=== PATIENT | female | born 1950 | race Caucasian/White ===

== ENCOUNTER 2016-07-01 12:34 | Emergency (ER) | payer OTHER ==
--- NOTE | ~2016-07-01 | CR133 ---
[facility] A Service of [facility] & [facility] RADIOLOGY TEXT RESULTS PATIENT: GORGE COOK LOCATION: [facility] : 50 UNIT #: [id number] AGE: [address]: Dioni Martinez MD SEX: F ORDER DR: [id number] [facility] [address] [place], [place] [address] [id number] E MR#: [id number] Acc #: [id number] NAME: GORGE COOK. : 1950 SEX: F STUDY DATE/TIME: 07/01/2016 12:54 UNIT: [facility] ROOM: STUDY DESCRIPTION: CR Forearm 2 View Rt Attending Physician: Dioni Martinez M.D. Ordering Physician: Dioni Martinez M.D. Primary Care Physician: Tila Hair M.D. MEDICAL IMAGING REPORT This report is preliminary unless electronic signature is present EXAM Right forearm 07/01/2016 HISTORY Right arm pain status post fall 1 day ago. COMPARISON None. FINDINGS 2 views right forearm demonstrate no acute fracture or dislocation. Bony demineralization noted. Soft tissues are unremarkable. Degenerative changes of the first carpometacarpal joint. IMPRESSION Osteopenia. No evidence of a displaced fracture or dislocation. Degenerative changes first CMC joint. Dictated by... Rodriguez Grey M.D. THIS IS AN ELECTRONICALLY VERIFIED REPORT Rodriguez Grey M.D. at 07/02/2016 9:08 AM EMANUEL/chava TD: 07/02/2016 08:47 JOB #: [id number] MEDICAL IMAGING REPORT Page 1 of 1 COPY
[~2016-07-01 12:34] MED LIST: ACETAMINOPHEN PO; ADVAIR 250-501 EACH IH; ADVAIR 2501 DISK W/D; ADVAIR 2501 DISK W/D PO; ADVAIR 500-501 EACH IH; ADVAIR 500-501 EACH INH; ADVAIR 5001 DISK W/1 IH; ADVAIR 5001 DISK W/2 IH; ADVAIR 5001 DISK W/2 INH; ADVAIR 5001 DISK W/D PO; ADVAIR INH; ALB/IPRATROPIUM/1 E1 NEB; ALBUTEROL17 GM INH; AMIODARONE HCL100 MG PO; AMLODIPINE BESYL5 MG PO; AMOXICILLIN PO; AMOXICILLIN500 M1 PO; AMOXICILLIN875 MG PO; ASPIRIN81 M1 PO; ASPIRIN81 M2 PO; ATELVIA35 MG PO; ATENOLOL PO; ATENOLOL50 MG PO; AUGMENTIN PO; AUGMENTIN875 M1 DOB; AUGMENTIN875 M1 PO; AUGMENTIN875 MG PO; BAYER ASPIRIN325 M1 PO; BAYER CHEWABLE81 MG PO; BENTYL20 M1 PO; BENTYL20 MG PO; BENZONATATE PO; BETAPACE AF160 MG PO; BETAPACE160 MG PO; BRILINTA90 MG PO; CALCIUM + D 6001 TA1 PO; CALCIUM1 TAB.CHEW PO; CELEXA20 MG PO; CHANTIX PO; CHANTIX1 DOSE-PAC; CHANTIX1 MG; CHANTIX1 MG BC; CHANTIX1 MG PO; CIPRO PO; COMBIVENT INH14.7 GM INH; COMBIVENT MININEB INH; CORDARONE150 MG/3 M PO; CORDARONE200 M1 PO; COUMADIN2.5 MG PO; COUMADIN5 MG PO; CREON 101 CA1 PO; CREON DR 24,001 EACH PO; DAKIN'S3840 ML TOP; DICLOFENAC; DICYCLOMINE HCL20 MG PO; DILANTIN KAPSE100 MG PO; DILANTIN PO; DISCONTINUED MED; DURAGESIC TOP; EFFER-K 10 MEQ10 MEQ PO; FLAGYL PO; FLAGYL250 M1 PO; FLEXERIL PO; FOLIC ACID PO; FUROSEMIDE40 MG PO; GLUCOSAMINE500 M1 PO; HALDOL PO; HCTZ PO; HYCODAN60 ML 5MG/ PO; HYDROCHLOROTHIA25 MG PO; HYDROCODON-ACE1 EAC7 PO; IPRATR-ALBUTEROL3 ML INH; K-DUR20 ME1 PO; KEFLEX PO; KEFLEX500 MG PO; KEPPRA100 MG/ML PO; KEPPRA1000 MG PO; KEPPRA500 M2 PO; KEPPRA750 M1 PO; KEPPRA750 MG PO; LASIX; LASIX PO; LASIX20 MG PO; LEVETIRACETAM1000 MG PO; LEXAPRO PO; LIPITOR PO; LIPITOR20 MG PO; LIPITOR40 MG PO; LISINOPRIL; LISINOPRIL PO; LISINOPRIL10 MG PO; LISINOPRIL2.5 MG PO; LOPRESSOR PO; LORTAB 5/500 TA1 TA1 PO; LORTAB 5/500 TA1 TA2 PO; LORTAB 7.5-5001 TAB PO; MEDROL DOSEPAK4 MG PO; MEDROL PO; METHOTREXATE2.5 MG; METHOTREXATE2.5 MG PO; METOPROLOL-HCTZ1 TA3 PO; MIRTAZAPINE30 M1 PO; MONTELUKAST SOD10 MG PO; MYCAMINE100 MG/VIA IV; NEXIUM PO; NORCO 10/325 TA1 TAB PO; NORVASC PO; OMEPRAZOLE40 M1 PO; OMEPRAZOLE40 MG PO; OPANA ER30 M1 PO; OPANA ER30 MG PO; OPANA ER40 MG PO; OTC IRON PO; OXYCODONE HCL10 MG PO; OXYCODONE HCL5 M1 PO; OXYCONTIN10 MG PO; PANCREATIC ENZYME; PERCOCET PO; PERCOCET5/325 PO; PHENERGAN25 M1 PO; PHENERGAN25 MG PO; PHOSLO667 MG PO; POTASSIUM CHLO10 ME1 PO; POTASSIUM CHLO20 ME1 PO; PREDNISONE PO; PRILOSEC PO; PRILOSEC40 MG PO; PRIMATINE MIST; PROCARDIA XL PO; PROCARDIA10 MG PO; PROTONIX PO; PROZAC PO; PYRIDIUM PO; REMERON15 MG PO; REMERON30 MG PO; SERTRALINE HCL100 M1 PO; SERTRALINE HCL100 MG PO; SINGULAIR PO; SOLU-MEDROL1000 MG IV; SOTALOL160 MG PO; SPIRIVA; SPIRIVA18 MCG INH; SPIRIVA18 MCG PO; SYMBICORT INH; TENORMIN50 MG PO; TYLOX 5/500 CAP1 CAP PO; TYLOX1 CAP 5/50 PO; ULTRAM PO; VICODIN 5/500 T1 TAB PO; VICODIN PO; VIMPAT100 MG PO; VIMPAT150 MG PO; VIMPAT50 MG PO; VITAMIN D10000 UNIT PO; VITAMIN D50000 UNIT PO; VOLTAREN50 MG PO; WARFARIN SODIUM4 MG PO; XANAX0.5 M1 PO; XARELTO PO; XARELTO20 MG PO; ZENPEP DR 20,01 EACH PO; ZENPEP PO; ZESTORETIC 20/11 TAB PO; ZITHROMAX PO; ZOLOFT100 MG PO; ZOLOFT50 MG PO; [UNRECOGNIZED DRUG - OTHER]
== END 2016-07-01 13:50 | disposition home or self-care (01) ==
LOC: CED 12:34
DX: S50.11XA Contusion of right forearm, initial encounter (principal); I48.91 Unspecified atrial fibrillation; F17.200 Nicotine dependence, unspecified, uncomplicated; Z79.01 Long term (current) use of anticoagulants; W19.XXXA Unspecified fall, initial encounter; Y92.009 Unspecified place in unspecified non-institutional (private) residence as the place of occurrence of the external cause
CPT/HCPCS: 73090; 99283

== ENCOUNTER 2016-07-28 18:35 | Emergency (ER) | payer OTHER ==
[2016-07-29] MEDS ORDERED: BRILINTA90 MG PO (13:43)
[2016-07-29] MEDS ORDERED: LISINOPRIL2.5 MG PO (13:44)
[2016-07-29] MEDS ORDERED: SERTRALINE HCL100 M1 PO (13:44)
[2016-07-29] MEDS ORDERED: KEPPRA750 MG PO (13:44)
[2016-07-29] MEDS ORDERED: VIMPAT200 MG PO (13:44)
[2016-07-29] MEDS ORDERED: AMIODARONE HCL200 MG PO (13:45)
[2016-07-29] MEDS ORDERED: LOPRESSOR PO (13:45)
[2016-07-29] MEDS ORDERED: ATORVASTATIN CA40 MG PO (13:45)
[2016-07-29] MEDS ORDERED: PROTONIX PO (13:46)
[2016-07-29] MEDS ORDERED: LETROZOLE2.5 MG PO (13:47)
[2016-07-29] MEDS ORDERED: POTASSIUM CHLO10 ME1 PO (13:47)
[2016-07-29] MEDS ORDERED: ASPIRIN81 MG PO (13:47)
[2016-07-29] MEDS ORDERED: ALENDRONATE SOD70 M1 PO (13:48)
[2016-07-29] MEDS ORDERED: LASIX PO (13:48)
[2016-07-29] MEDS ORDERED: ADVAIR 250-501 EAC1 INH (13:49)
[2016-07-29] MEDS ORDERED: TYL325 PO (13:49)
[2016-07-29] MEDS ORDERED: ALBUTEROL2.5 MG/3 M NEB (13:50)
[2016-07-29] MEDS ORDERED: CREON DR 12,001 EAC2 PO (13:51)
[2016-07-29] MEDS ORDERED: COUMADIN7.5 MG PO (16:40)
[2016-07-29] MEDS ORDERED: COUMADIN5 MG PO (16:40)
== END 2016-07-28 18:45 | disposition left against medical advice (07) ==
LOC: CED 18:35
DX: Z53.21 Procedure and treatment not carried out due to patient leaving prior to being seen by health care provider (principal)

== ENCOUNTER 2016-07-29 09:32 | Inpatient (IN) | payer OTHER ==
--- NOTE | ~2016-07-29 | HP ---
Unit #: [id number] #: [id number] Patient: GORGE COOK [id number] [facility]. [place], [place] [address] [id number] E MR#: [id number] NAME: GORGE COOK ROOM: Age: 66 Sex: F Admission Date: 07/29/2016 : 1950 Attending Physician: Awilda Meyers M.D. Primary Care Physician: Tila Hair M.D. HISTORY AND PHYSICAL CHIEF COMPLAINT Unable to walk, weakness. HISTORY OF PRESENT ILLNESS The patient is a 66-year-old female with past medical history of PRES (posterior reversible encephalopathy syndrome), coronary artery disease, valvular heart disease, paroxysmal atrial fibrillation, chronic anticoagulation with Coumadin, hypertension, hyperlipidemia, diastolic dysfunction, COPD, chronic respiratory failure, seizure disorder, anxiety, chronic back pain, rheumatoid arthritis, who presented to the emergency department for evaluation of the above. The patient states that she has been feeling increasingly generally weak and had more falls than usual over the past week. She apparently saw Dr. Garcia yesterday for routine followup and was told to come to the emergency department for further evaluation. She apparently thought that it looked too crowded and so returned today. She states that she has had falls with hitting of the head and possibly loss of consciousness. She is unable to ambulate due to weakness. She also complains of right calf pain. She states that shortness of breath is at baseline. She has had loose stool. She has noticed this stool to have bright red blood and to be somewhat dark at times. She denies any abdominal pain. She was apparently treated with Cleocin for bronchitis by her primary care physician. The last dose was within the past couple of days. Upon arrival in the emergency department, the patient's pulse and blood pressure were 102 and 112/86 respectively. Oxygen saturation was 89% on room air. Laboratory notable for hemoglobin of 6, INR is 7.4. She was noted to be heme positive. She was given one unit of packed red blood cells as well as one unit of FFP. Additionally, she received 5 mg of vitamin K IV. She is being admitted to [facility] for evaluation and further treatment. PAST MEDICAL HISTORY 1. Admission to [facility] January 28 through the 2015, for weakness and falls. She was seen in consultation by Dr. Ratliff. There was concern that she was having partial seizures. Her Vimpat was increased. 2. Posterior reversible encephalopathy syndrome, followed by Dr. Garcia. 3. History of GI bleed. The patient has seen Dr. Bazzi in the past. 4. Coronary artery disease, status post stent placement. Followed by Dr. Mcleod. 5. Valvular heart disease, status post bioprosthetic aortic valve replacement. Unit #: [id number] #: [id number] Patient: GORGE COOK 6. Paroxysmal atrial fibrillation, on chronic anticoagulation with Coumadin. 7. Hypertension. 8. Hyperlipidemia. 9. Diastolic dysfunction. The patient had an echocardiogram June 07, 2015, that showed an ejection fraction of 55% with mild to moderate mitral regurgitation, moderate to severe tricuspid regurgitation. 10. COPD. The patient has seen Dr. Freire in the past. 11. Chronic respiratory failure, on 3 L of oxygen per nasal cannula. 12. Seizure disorder, followed by Dr. Garcia, maintained on Vimpat and Keppra. 13. Anxiety. 14. Chronic back pain secondary to degenerative disc disease. 15. Rheumatoid arthritis, not followed by a hurricane tracker. PAST SURGICAL HISTORY 1. Cardiac stent placement. 2. Bioprosthetic aortic valve replacement. 3. Hysterectomy. 4. . 5. Cataract surgery. 6. Bladder repair. 7. EGD and colonoscopy April 16, 2015, showed diffuse gastritis as well as polyps within the colon and internal hemorrhoids. Pathology report showed tubular adenoma. SOCIAL HISTORY The patient's son lives with her. She continues to smoke. She is a recovering alcoholic with her last drink being in 1994. She has a cane and a walker. FAMILY HISTORY Notable for her father having lung cancer. Mother had hypertension. ALLERGIES Propoxyphene, erythromycin, tetanus toxoid, fentanyl, ketorolac, levofloxacin. MEDICATIONS Home medications include: 1. Brilinta 90 mg twice daily. 2. Sertraline 100 mg daily. 3. Keppra 750 mg twice daily. 4. Vimpat 200 mg twice daily. 5. Lisinopril 2.5 mg daily. 6. Lopressor 50 mg twice daily. 7. Amiodarone 200 mg daily. 8. Atorvastatin 40 mg daily. 9. Protonix 40 mg daily. 10. Aspirin 81 mg daily. 11. Potassium 10 mEq daily. 12. Letrozole 2.5 mg at bedtime. 13. Lasix 20 mg daily p.r.n. 14. Alendronate 70 mg weekly. 15. Tylenol 650 mg q.6 hours p.r.n. 16. Advair 250/50 inhaled twice daily. 17. Albuterol 2.5 mg q.6 hours p.r.n. 18. Creon 12,000 units t.i.d. with meals. Unit #: [id number] #: [id number] Patient: GORGE COOK REVIEW OF SYSTEMS A complete review of systems was negative except as indicated in the HPI. Of note, Coumadin is not listed on the Med Rec. However, the patient states that she was restarted on Coumadin. She does not recall who restarted it. The dose was increased about a week ago. DIAGNOSTIC STUDIES CARDIOVASCULAR: EKG shows sinus bradycardia with a rate of 59 beats/minute. CT of the head shows nothing acute. LABORATORY: Troponin is less than 0.05. Complete blood count notable for hemoglobin and hematocrit of 6 and 20.1 respectively. MCV is 77.3, RDW is 19.4, INR is 7.4. Comprehensive metabolic panel notable for chloride of 112, bicarb is 17 with an anion gap of 6. BUN and creatinine 26 and 1.3 respectively. Calcium is 8.1. Urinalysis is essentially normal. Urine tox screen is negative. PHYSICAL EXAMINATION VITAL SIGNS: Temperature is 97.3, pulse 102, respirations 15, blood pressure 112/86, oxygen saturation initially 89% on room air, now 94%. GENERAL: The patient is a chronically ill appearing female who is awake and alert in no acute distress. HEENT: The head is atraumatic. Mucous membranes are moist. NECK: Supple. Trachea is midline. CARDIOVASCULAR: Regular rate and rhythm. LUNGS: Demonstrate decreased breath sounds bilaterally. Breathing is not labored. ABDOMEN: Soft, nontender with bowel sounds present in all four quadrants. RECTAL EXAM: Heme positive per ER documentation. EXTREMITIES: The right lower extremity is grossly larger than the left. NEURO: The patient is awake and alert. She follows commands. PSYCH: The patient is cooperative. SKIN: Demonstrates scattered ecchymoses. ASSESSMENT The patient is a 66-year-old female with: 1. Symptomatic anemia. 2. Acute blood loss anemia: The patient's hemoglobin is 6. It was 11.1 on March 21, 2016. 3. Gastrointestinal bleed: One unit of packed red blood cells have been ordered. 4. Supratherapeutic INR with an INR of 7.4. The patient received 5 mg of vitamin K IV as well as one unit of FFP in the emergency department. 5. Paroxysmal atrial fibrillation. 6. Hypertension. 7. Hyperlipidemia. 8. Valvular heart disease, status post bioprosthetic aortic valve replacement. 9. Diastolic dysfunction with ejection fraction as noted above. 10. Chronic obstructive pulmonary disease with continued tobacco abuse. 11. Chronic respiratory failure, on 3 L of oxygen per nasal cannula. 12. Coronary artery disease, status post cardiac stent placement. Unit #: [id number] #: [id number] Patient: GORGE COOK 13. History of posterior reversible encephalopathy syndrome, followed by Dr. Garcia. 14. Seizure disorder, maintained on Vimpat and Keppra. PLAN 1. Admit to intermediate level. 2. Clear liquid diet for possible endoscopy. 3. Hemoglobin and hematocrit one hour after transfusion and q.6 hours. Will plan to transfer for hemoglobin less than 8 due to history of coronary artery disease. 4. Iron studies, B12 and folate. 5. Protonix 80 mg IV x1 now followed by Protonix drip at 8 mg/hr. 6. Hold Brilinta, aspirin and Coumadin. 7. Consult Dr. Bazzi regarding GI bleed. 8. Serial cardiac enzymes. 9. Supplemental oxygen. 10. P.r.n. Duo-Nebs. 11. Fall precautions. 12. Bedrest. 13. PT/OT to evaluate and treat. 14. Followup results of right lower extremity Doppler. 15. Repeat labs in the morning including INR. 16. Additional workup and consultants based on above. Dictated by Isabel Miguel/shin TD: 07/29/2016 15:26 JOB #: [id number] HISTORY AND PHYSICAL Page 1 of 1 X Emily Kumar MD X HISTORY AND PHYSICAL
--- NOTE | ~2016-07-29 | CR72 ---
[facility] A Service of [facility] & [facility] RADIOLOGY TEXT RESULTS PATIENT: GORGE COOK LOCATION: [facility] 329-01 : [birth year] UNIT #: [id number] AGE: [address]: Emily Kumar MD SEX: F ORDER DR: [id number] [facility] [address]. [place], [place] [address] [id number] I MR#: [id number] Acc #: [id number] NAME: GORGE COOK. : 1950 SEX: F STUDY DATE/TIME: 07/29/2016 11:05 UNIT: [address] ROOM: [facility] STUDY DESCRIPTION: CR Chest Single View Portable Attending Physician: Emily Kumar M.D. Ordering Physician: Awilda Meyers M.D. Primary Care Physician: Tila Hair M.D. MEDICAL IMAGING REPORT This report is preliminary unless electronic signature is present EXAM Portable chest HISTORY Fall, chest pain for 1 day. COMPARISON 01/29/2016. FINDINGS There are granulomatous calcifications. No acute appearing infiltrate. Heart size stable. Visualized osseous structures unremarkable. IMPRESSION No acute findings. Dictated by... Terry Rolon M.D. THIS IS AN ELECTRONICALLY VERIFIED REPORT Terry Rolon M.D. at 07/30/2016 3:47 PM ARS/magaly TD: 07/29/2016 22:39 JOB #: [id number] MEDICAL IMAGING REPORT Page 1 of 1 COPY
--- NOTE | ~2016-07-29 | EKG ---
PATIENT: GORGE COOK UNIT #: [id number] Ventricular Rate: 59 BPM Atrial Rate: 59 BPM P-R Interval: 204 ms QRS Duration: 170 ms Q-T Interval: 498 ms QTC Calculation(Bezet): 493 ms P [place]: 85 degrees Calculated R [place]: -36 degrees Calculated T [place]: 62 degrees Diagnosis Line: Sinus bradycardia Diagnosis Line: Left axis deviation Diagnosis Line: Right bundle branch block Diagnosis Line: Abnormal ECG Diagnosis Line: When compared with ECG of 21-MAR-2016 11:04, Diagnosis Line: Right bundle branch block is now Present Diagnosis Line: Criteria for Septal infarct are no longer Present Diagnosis Line: Confirmed by ELIDA MULLINS MD ([id number]) on Diagnosis Line: 07/31/2016 8:35:37 AM INTERPRETING MD: HARPREET BROWN
--- NOTE | ~2016-07-29 | US85 ---
[facility] A Service of [facility] & [facility] RADIOLOGY TEXT RESULTS PATIENT: GORGE COOK LOCATION: [facility] 329- : 50 UNIT #: [id number] AGE: [address]: Emily Kumar MD SEX: F ORDER DR: [id number] [facility] [address] [place], [place] [address] [id number] I MR#: [id number] Acc #: [id number] NAME: GORGE COOK. : 1950 SEX: F STUDY DATE/TIME: 07/29/2016 14:21 UNIT: [address] ROOM: [facility] STUDY DESCRIPTION: LE Veins Unilat or Ltd Stdy Attending Physician: Emily Kumar M.D. Ordering Physician: Awilda Meyers M.D. Primary Care Physician: Tila Hair M.D. MEDICAL IMAGING REPORT This report is preliminary unless electronic signature is present EXAM Right lower extremity duplex venous ultrasound HISTORY Pain and swelling of the right lower extremity for 2 days. TECHNIQUE Grayscale, color Doppler and spectral Doppler waveform imaging of the deep venous structures of the right lower extremity was performed with compression and augmentation. Study is compared with 11/30/2015. FINDINGS Study demonstrates no evidence of DVT. IMPRESSION There is no evidence of DVT. Dictated by... Terry Rolon M.D. THIS IS AN ELECTRONICALLY VERIFIED REPORT Terry Rolon M.D. at 07/30/2016 3:50 PM ARS/magaly TD: 07/30/2016 04:50 JOB #: [id number] MEDICAL IMAGING REPORT Page 1 of 1 COPY
--- NOTE | ~2016-07-29 | CO ---
Unit #: [id number] #: [id number] Patient: GORGE MORFIN [id number] [address] [address] [id number] I MR#: [id number] NAME: GORGE MORFIN. ROOM: 329 Age: 66 Sex: F Admission Date: 07/29/2016 : 1950 Attending Physician: Emily Kumar M.D. Primary Care Physician: Tila Hair M.D. Consultation Date: 07/30/2016 CONSULTATION REPORT REASON FOR CONSULTATION GI bleeding, severe anemia. HISTORY OF PRESENT ILLNESS Ms. Morfin is a 66-year-old lady with multiple medical problems known to me from previous workup. She was admitted with complaints of generalized weakness as well as dizziness. She was found to be severely anemic and also her INR was 7.4. She says she has been showing some blood in the stool, however, it is not a large amount. There is no black stool, no nausea or vomiting, dysphagia, or hematemesis. She denies any abdominal pain. She denies any NSAID use. PAST MEDICAL HISTORY Significant for: 1. EGD and colonoscopy, March 2015, about a year and a half ago, where she was found to have gastritis and small polyps and internal hemorrhoids. 2. History of posterior reversible encephalopathy syndrome. 3. History of coronary artery disease. One month ago she had stent placement. 4. History of valvular heart disease, status post valve prosthesis, aortic valve replacement. 5. History of atrial fibrillation. 6. Hypertension. 7. Hyperlipidemia. 8. Congestive heart failure. 9. COPD. 10. Seizure disorder. HOME MEDICATIONS Include: 1. Brilinta. 2. Sertraline. 3. Keppra. 4. Vimpat. 5. Lisinopril. 6. Protonix. 7. Aspirin. 8. Creon. ALLERGIES 1. Propoxyphene. 2. Erythromycin. 3. Tetanus toxoid. Unit #: [id number] #: [id number] Patient: GORGE MORFIN 4. Fentanyl. 5. Ketoralac. 6. Levofloxacin. SOCIAL HISTORY Smoker. Denies alcohol or drug abuse. Lives with son. FAMILY HISTORY Father with lung cancer. REVIEW OF SYSTEMS A complete 10-point review of systems was done which is unremarkable other than as mentioned above. PHYSICAL EXAMINATION VITAL SIGNS: Stable. GENERAL: No acute distress. HEENT: Pupils are equal and reactive. Sclerae is anicteric. Oral mucosa is moist. NECK: No JVD. No lymphadenopathy. LUNGS: A few scattered rhonchi bilaterally. HEART: Irregular heartbeat. Mechanical valve sound. NEUROLOGIC: Grossly intact. Detailed examination deferred. SKIN: Warm and dry. DIAGNOSTIC STUDIES LABORATORY: Hemoglobin was 6, has been up to 9.3 this morning with transfusion. INR on arrival was 7.4, has been corrected with vitamin K and this morning is 1.1. IMAGING: CT head normal. ASSESSMENT AND PLAN 1. Patient with severe iron-deficiency anemia with transferrin saturation of 4, ferritin of 38 and hemoglobin of 6, appears to be subacute or chronic occult blood loss along with some active bleeding secondary to Coumadin overdose. The INR has been corrected. Will continue to watch for any further bleeding. She had upper endoscopy and colonoscopy within the last two years. I will hold off on any procedures particularly that she cannot stop any of her blood thinners given the recent stent placement and prosthetic valves. If she continues to have bleeding, endoscopy will have to be considered. Right now, I will keep her on Protonix and watch for further bleeding. 2. Severe anemia, iron deficiency. Blood transfusion has been given. Will give her iron infusion also. 3. History of chronic pancreatitis. 4. History of colon polyps. 5. Gastroesophageal reflux disease. 6. Coumadin overdose, reversed. 7. Congestive heart failure. 8. Chronic obstructive pulmonary disease. Thank you Dr. Kumar for this interesting consult, we will follow along. Unit #: [id number] #: [id number] Patient: GORGE MORFIN Dictated by... Isabel Lemons/trish TD: 08/04/2016 21:21 JOB #: [id number] CONSULTATION REPORT Page 1 of 1 X Elton Bazzi MD CONSULTATION REPORT
--- NOTE | ~2016-07-29 | DS ---
Unit #: [id number] #: [id number] Patient: GORGE COOK [id number] [address] [address] [id number] I MR#: [id number] NAME: GORGE COOK. ROOM: 329 Age: 66 Sex: F Admission Date: 07/29/2016 : 1950 Discharge Date: Attending Physician: Emily Kumar M.D. Primary Care Physician: Tila Hair M.D. DISCHARGE SUMMARY DISCHARGE DIAGNOSES 1. Gastrointestinal bleed. 2. Acute blood loss anemia with history of chronic iron-deficiency anemia. 3. Supratherapeutic INR. 4. History of atrial fibrillation. Coumadin is on hold secondary to GI bleed. 5. Hypertension. 6. Hyperlipidemia. 7. Valvular heart disease, status post bioprosthetic aortic valve replacement. 8. History of chronic diastolic heart failure. 9. Chronic obstructive pulmonary disease, stable. 10. Smoking. 11. Chronic respiratory failure on 3 liters oxygen at home. 12. Coronary artery disease, status post stent on Brilinta. 13. History of encephalopathy. 14. History of seizures on Vimpat and Keppra. 15. Mild metabolic acidosis. 16. Hypocalcemia. CONSULTANTS Dr. Bazzi. PROCEDURES None. DIAGNOSTIC STUDIES LABORATORY: Hemoglobin 9.2. Sodium 138, potassium 4.2, creatinine 0.9, liver enzymes normal, albumin 3.3. Troponins negative. IMAGING: Ultrasound of the lower extremities negative for DVT. CAT scan of the head negative for acute changes. ALLERGIES 1. Propoxyphene. 2. Erythromycin. 3. Tetanus toxoid. 4. Fentanyl. 5. Ketoralac. 6. Levofloxacin. DISCHARGE MEDICATIONS Unit #: [id number] #: [id number] Patient: GORGE COOK 1. Albuterol 2.5 mg nebulizer q.6 h. p.r.n. shortness of breath. 2. Advair 250/50 Diskus inhalation b.i.d. 3. Amiodarone 200 daily. 4. Tylenol 650 q.6 h. p.r.n. pain. 5. Vimpat 200 p.o. b.i.d. 6. Keppra 750 mg p.o. b.i.d. 7. Zoloft 100 mg daily. 8. Atorvastatin 40 daily. 9. Letrozole 2.5 mg h.s. 10. Lopressor 50 p.o. b.i.d. 11. Creon 12,000 units capsule, one capsule t.i.d. with meals. 12. Lisinopril 2.5 p.o. daily. 13. Alendronate 70 mg p.o. weekly. 14. Aspirin 81 daily. 15. Brilinta 90 mg p.o. b.i.d. 16. Protonix 40 daily. 17. Ferrous sulfate 325 p.o. b.i.d. HOSPITAL COURSE This is a 66-year-old admitted because of GI bleed. GI bleed. Patient was seen by Gastroenterology. Patient had transfusion. Currently hemoglobin is 9.2 and stable. Patient is okay to be discharged as per Dr. Bazzi. She will follow him in 4 weeks' time. Anemia secondary to acute blood loss. The patient has chronic iron-deficiency anemia also. Patient has had a blood transfusion. Hemoglobin 9.2. I am going to give her iron supplements for at home. History of atrial fibrillation with supratherapeutic INR of 1.4 on admission. The patient received vitamin K and FFP. Currently, Coumadin is on hold secondary to severe bleeding. Patient will follow her senior talent acquisition specialist for resumption of Coumadin later once she is more stable. History of coronary artery disease with stents. Continue with aspirin and Brilinta. I discussed with Dr. Bazzi. He is okay for me to continue both of them. History of valvular heart disease, status post bioprosthetic aortic valve replacement. Follow with her senior talent acquisition specialist. Seizures. Stable. DISPOSITION Discharge home. FOLLOWUP 1. Follow with family physician in one week time. 2. Follow with Dr. Bazzi in 4 weeks' time. Discharge time taken is 31 minutes. Dictated by... Tricia Dent M.D. SHERMAN/trish Unit #: [id number] #: [id number] Patient: GORGE COOK TD: 07/31/2016 15:39 JOB #: [id number] DISCHARGE SUMMARY Page 1 of 1 X Tricia Dent MD SUMMARY
--- NOTE | ~2016-07-29 | CT71 ---
[facility] A Service of [facility] RADIOLOGY TEXT RESULTS PATIENT: GORGE COOK LOCATION: [facility] 329 : 50 UNIT #: [id number] AGE: [address]: Emily Kumar MD SEX: F ORDER DR: [id number] [facility] [address] [facility]. [place], [place] [address] [id number] I MR#: [id number] Acc #: [id number] NAME: GORGE COOK. : 1950 SEX: F STUDY DATE/TIME: 07/29/2016 11:21 UNIT: [address] ROOM: [facility] STUDY DESCRIPTION: CT Head Wo Contrast Attending Physician: Emily Kumar M.D. Ordering Physician: Awilda Meyers M.D. Primary Care Physician: Tila Hair M.D. MEDICAL IMAGING REPORT This report is preliminary unless electronic signature is present EXAM CT of the head without contrast HISTORY Headache today. Multiple recent falls. Injury to right side of head. TECHNIQUE CT of the head was performed without contrast. This CT exam was performed with one or more of the following radiation dose reduction techniques: automatic control, adjustment of mA and/or kV according to patient size, and iterative reconstruction. COMPARISON 01/27/2016 FINDINGS There is no evidence of intracranial hemorrhage, acute cortical based infarction, focal mass lesion or hydrocephalus. There are stable chronic white matter changes. The included orbits and paranasal sinuses are unremarkable. The bone windows are unremarkable. IMPRESSION No acute intracranial abnormality. Dictated by... Terry Rolon M.D. THIS IS AN ELECTRONICALLY VERIFIED REPORT Terry Rolon M.D. at 07/30/2016 3:47 PM ARS/rnr [facility] RADIOLOGY TEXT RESULTS PATIENT: GORGE COOK LOCATION: [facility] 329 : 50 UNIT #: [id number] AGE: [address]: Emily Kumar MD SEX: F ORDER DR: TD: 07/29/2016 22:52 JOB #: [id number] MEDICAL IMAGING REPORT Page 1 of 1 COPY
[2016-07-29 11:23] LABS: BASOPHIL% 0.3 % (0-2.5); EOSINOPHIL% 0.2 % (0.0-7.0); HEMATOCRIT 20.1 % (35.0-45.0); LYMPHOCYTE# 0.7 X10e3 (1.0-3.5); LYMPHOCYTE% 8.8 % (17.0-45.0); MEAN CELL VOLUME 77.3 FL (83-96); MEAN CORPUSCULAR HGB CONC 29.8 g/dL (30-36); MEAN PLATELET VOLUME 7.7 FL (6.5-11.5); MONOCYTE# 0.6 X10e3 (0-1.0); MONOCYTE% 7.3 % (3.0-12.0); NEUTROPHIL# 6.3 X10e3 (1.5-7.1); NEUTROPHIL% 83.4 % (40-75); PLATELET COUNT 247 X10e3 (140-420); RED CELL DISTRIBUTION WIDTH 19.4 % (11.0-15.5); WHITE BLOOD COUNT 7.6 X10e3 (4.0-10.5)
[2016-07-29 11:25] LABS: DIFF IND YES
[2016-07-29 11:33] LABS: POC - CKMB 1.9 ng/mL (0.0-7.9); POC - TROPONIN <0.05 ng/mL (<=0.05)
[2016-07-29 11:42] LABS: NUCLEATED RED BLOOD CELL 1 /100 (0)
[2016-07-29 11:43] LABS: ANISOCYTOSIS SL; OVALOCYTES PRESENT; PLATELET ESTIMATE NORMAL (NORMAL)
[2016-07-29 11:50] LABS: ALBUMIN SERUM 3.6 g/dL (3.5-5.0); BILIRUBIN, DIRECT 0.1 mg/dL (0.0-0.2); BILIRUBIN,INDIRECT 0.5 mg/dL (0.0-0.9); BILIRUBIN,TOTAL 0.6 mg/dL (0.2-2.0); CALCIUM SERUM 8.1 mg/dL (8.4-10.2); CREATININE SERUM 1.3 mg/dL (0.6-1.4); GLOM FILT RATE Estimated 42.7 mL/min (>60); POTASSIUM 4.8 mmol/L (3.5-5.1); PROTEIN TOTAL SERUM 6.3 g/dL (6.0-8.3); PROTHROMBIN TIME (PATIENT) 83.7 SECONDS (9.6-11.5)
[2016-07-29 11:51] LABS: INR 7.4; PARTIAL THROMBOPLASTIN TIME 62.9 SECONDS (23.5-31.3)
[2016-07-29 12:41] LABS: URINE SOURCE CLEAN CATCH
[2016-07-29 12:47] LABS: URINE APPEARANCE CLEAR; URINE BILIRUBIN NEG (NEG); URINE BLOOD NEG (NEG); URINE COLOR YELLOW; URINE GLUCOSE NEG (NEG); URINE KETONE NEG (NEG); URINE LEUKOCYTE ESTERASE NEG (NEG); URINE NITRATE NEG (NEG); URINE PH 6.5 (5-8); URINE PROTEIN NEG (NEG); URINE SPECIFIC GRAVITY 1.015 (1.003-1.035); URINE UROBILINOGEN 0.2 MG/DL (NEG)
[2016-07-29 12:51] LABS: CULTURE INDICATED? NO
[2016-07-29 12:57] LABS: AMPHETAMINE NEG (NEG); BARBITURATES NEG (NEG); BENZODIAZEPINES NEG (NEG); COCAINE NEG (NEG); MARIJUANA NEG (NEG); OPIATES NEG (NEG); TRICYCLIC ANTIDEPRESSANTS NEG (NEG); U METHADONE NEG (NEG)
[2016-07-29 13:17] LABS: POC - CKMB 1.2 ng/mL (0.0-7.9); POC - TROPONIN <0.05 ng/mL (<=0.05)
[2016-07-29] MEDS ORDERED: BRILINTA90 MG PO (13:43)
[2016-07-29] MEDS ORDERED: SERTRALINE HCL100 M1 PO (13:44)
[2016-07-29] MEDS ORDERED: KEPPRA750 MG PO (13:44)
[2016-07-29] MEDS ORDERED: LISINOPRIL2.5 MG PO (13:44)
[2016-07-29] MEDS ORDERED: VIMPAT200 MG PO (13:44)
[2016-07-29] MEDS ORDERED: ATORVASTATIN CA40 MG PO (13:45)
[2016-07-29] MEDS ORDERED: LOPRESSOR PO (13:45)
[2016-07-29] MEDS ORDERED: AMIODARONE HCL200 MG PO (13:45)
[2016-07-29] MEDS ORDERED: PROTONIX PO (13:46)
[2016-07-29] MEDS ORDERED: LETROZOLE2.5 MG PO (13:47)
[2016-07-29] MEDS ORDERED: POTASSIUM CHLO10 ME1 PO (13:47)
[2016-07-29] MEDS ORDERED: ASPIRIN81 MG PO (13:47)
[2016-07-29] MEDS ORDERED: ALENDRONATE SOD70 M1 PO (13:48)
[2016-07-29] MEDS ORDERED: LASIX PO (13:48)
[2016-07-29] MEDS ORDERED: ADVAIR 250-501 EAC1 INH (13:49)
[2016-07-29] MEDS ORDERED: TYL325 PO (13:49)
[2016-07-29] MEDS ORDERED: ALBUTEROL2.5 MG/3 M NEB (13:50)
[2016-07-29] MEDS ORDERED: CREON DR 12,001 EAC2 PO (13:51)
[2016-07-29] MEDS ORDERED: COUMADIN7.5 MG PO (16:40)
[2016-07-29] MEDS ORDERED: COUMADIN5 MG PO (16:40)
[2016-07-29 16:42] LABS: FOLATE (FOLIC ACID) 19.9 ng/mL (>5.8)
[2016-07-29 17:48] LABS: HEMATOCRIT 21.8 % (35.0-45.0)
[2016-07-29 18:02] LABS: HEMOGLOBIN 6.7 gm/dL (12.0-16.0)
[2016-07-29 19:55] LABS: %MB 2.4 % (0.0-4.0); MB 2.6 ng/ml
[2016-07-30 03:55] LABS: HEMATOCRIT 30.3 % (35.0-45.0)
[2016-07-30 03:56] LABS: HEMOGLOBIN 9.1 gm/dL (12.0-16.0)
[2016-07-30 07:57] LABS: BASOPHIL% 0.7 % (0-2.5); EOSINOPHIL% 0.8 % (0.0-7.0); HEMATOCRIT 27.5 % (35.0-45.0); HEMOGLOBIN 8.6 gm/dL (12.0-16.0); LYMPHOCYTE# 0.7 X10e3 (1.0-3.5); LYMPHOCYTE% 11.5 % (17.0-45.0); MEAN CORPUSCULAR HEMOGLOBIN 25.5 PG (28-34); MEAN CORPUSCULAR HGB CONC 31.2 g/dL (30-36); MEAN PLATELET VOLUME 8.9 FL (6.5-11.5); MONOCYTE# 0.4 X10e3 (0-1.0); NEUTROPHIL# 4.6 X10e3 (1.5-7.1); PLATELET COUNT 136 X10e3 (140-420); RED BLOOD COUNT 3.37 X10e (3.90-5.30); RED CELL DISTRIBUTION WIDTH 18.3 % (11.0-15.5); WHITE BLOOD COUNT 5.7 X10e3 (4.0-10.5)
[2016-07-30 07:59] LABS: MEAN CELL VOLUME 81.6 FL (83-96)
[2016-07-30 08:03] LABS: DIFF IND NO
[2016-07-30 08:43] LABS: ALBUMIN SERUM 3.4 g/dL (3.5-5.0); BILIRUBIN,TOTAL 1.1 mg/dL (0.2-2.0); CALCIUM SERUM 7.9 mg/dL (8.4-10.2); GLOM FILT RATE Estimated 58.7 mL/min (>60); POTASSIUM 4.6 mmol/L (3.5-5.1); PROTEIN TOTAL SERUM 5.6 g/dL (6.0-8.3)
[2016-07-30 09:18] LABS: %MB 2.2 % (0.0-4.0); MB 2.8 ng/ml
[2016-07-30 10:19] LABS: HEMOGLOBIN 9.3 gm/dL (12.0-16.0)
[2016-07-30 10:37] LABS: INR 1.1; PARTIAL THROMBOPLASTIN TIME 28.8 SECONDS (23.5-31.3); PROTHROMBIN TIME (PATIENT) 12.2 SECONDS (9.6-11.5)
[2016-07-30 14:52] LABS: HEMATOCRIT 33.7 % (35.0-45.0); HEMOGLOBIN 10.5 gm/dL (12.0-16.0)
[2016-07-30 22:29] LABS: HEMATOCRIT 28.4 % (35.0-45.0); HEMOGLOBIN 8.9 gm/dL (12.0-16.0)
[2016-07-31 03:40] LABS: HEMATOCRIT 28.5 % (35.0-45.0); HEMOGLOBIN 8.8 gm/dL (12.0-16.0); MEAN CELL VOLUME 80.3 FL (83-96); MEAN CORPUSCULAR HEMOGLOBIN 24.9 PG (28-34); MEAN CORPUSCULAR HGB CONC 30.9 g/dL (30-36); MEAN PLATELET VOLUME 8.7 FL (6.5-11.5); RED BLOOD COUNT 3.55 X10e (3.90-5.30); RED CELL DISTRIBUTION WIDTH 18.6 % (11.0-15.5); WHITE BLOOD COUNT 4.5 X10e3 (4.0-10.5)
[2016-07-31 04:07] LABS: ALBUMIN SERUM 3.3 g/dL (3.5-5.0); BILIRUBIN,TOTAL 0.9 mg/dL (0.2-2.0); BUN/CREATININE RATIO 14.44; CALCIUM SERUM 7.9 mg/dL (8.4-10.2); CREATININE SERUM 0.9 mg/dL (0.6-1.4); GLOM FILT RATE Estimated 66.7 mL/min (>60); POTASSIUM 4.2 mmol/L (3.5-5.1); PROTEIN TOTAL SERUM 5.6 g/dL (6.0-8.3)
[2016-07-31 10:15] LABS: HEMATOCRIT 30.2 % (35.0-45.0); HEMOGLOBIN 9.2 gm/dL (12.0-16.0)
[2016-07-31] MEDS ORDERED: FERRO-TIME325 MG PO (15:19)
== END 2016-07-31 17:13 | disposition home or self-care (01) | DRG 378 ==
LOC: CED 09:32 → CEDOF 14:45 → CED 14:57 → CEDOF 14:57 → C3A PCU 19:49
PROVIDERS: Family Medicine; Internal Medicine; Student in an Organized Health Care Education/Training Program
PROC: 30233N1 Transfusion of Nonautologous Red Blood Cells into Peripheral Vein, Percutaneous Approach (ICD-10-PCS; principal; 2016-07-29)
PROC: 30233L1 Transfusion of Nonautologous Fresh Plasma into Peripheral Vein, Percutaneous Approach (ICD-10-PCS; 2016-07-29)
PROC: 30233K1 Transfusion of Nonautologous Frozen Plasma into Peripheral Vein, Percutaneous Approach (ICD-10-PCS; 2016-07-29)
DX: K92.2 Gastrointestinal hemorrhage, unspecified (principal); J96.10 Chronic respiratory failure, unspecified whether with hypoxia or hypercapnia; E87.2 Acidosis; I48.0 Paroxysmal atrial fibrillation; Z99.81 Dependence on supplemental oxygen; I11.0 Hypertensive heart disease with heart failure; I50.32 Chronic diastolic (congestive) heart failure; J44.9 Chronic obstructive pulmonary disease, unspecified; G40.909 Epilepsy, unspecified, not intractable, without status epilepticus; E83.51 Hypocalcemia; D62 Acute posthemorrhagic anemia; K92.1 Melena; I25.10 Atherosclerotic heart disease of native coronary artery without angina pectoris; Z95.5 Presence of coronary angioplasty implant and graft; Z95.2 Presence of prosthetic heart valve; Z79.01 Long term (current) use of anticoagulants; E78.5 Hyperlipidemia, unspecified; F41.9 Anxiety disorder, unspecified; M54.9 Dorsalgia, unspecified; G89.29 Other chronic pain; M06.9 Rheumatoid arthritis, unspecified; Z79.82 Long term (current) use of aspirin
CPT/HCPCS: 36415; 70450; 71010; 80048; 80053; 80076; 80307; 81003; 82550; 82553; 82607; 82728; 82746; 82947; 83540; 83550; 84484; 85014; 85018; 85025; 85027; 85610; 85730; 86850; 86900; 86901; 86923; 93005; 93971; 94640; 94760; 97116; 97163; 97166; 99291; C9113; G8978-GP; G8979-GP; G8984-GO; G8985-GO; J2916; J3430; P9016; P9059

== ENCOUNTER 2016-08-04 11:48 | Emergency (ER) | payer OTHER ==
--- NOTE | ~2016-08-04 | CT71 ---
[facility] A Service of [facility] & [facility] RADIOLOGY TEXT RESULTS PATIENT: GORGE COOK LOCATION: [facility] : 50 UNIT #: [id number] AGE: [address]: Fabian Bruce MD SEX: F ORDER DR: [id number] [facility] [address] [place], [place] [address] [id number] E MR#: [id number] Acc #: [id number] NAME: GORGE COOK. : 1950 SEX: F STUDY DATE/TIME: 08/04/2016 13:36 UNIT: [facility] ROOM: STUDY DESCRIPTION: CT Head Wo Contrast Attending Physician: Omkar Bruce M.D. Ordering Physician: [facility] Primary Care Physician: Tila Hair M.D. MEDICAL IMAGING REPORT This report is preliminary unless electronic signature is present EXAM CT head 08/04/2016 HISTORY Headache. Weakness, fall, hit head, hit right side of head on concrete. Complains of headache all over, dizziness times today. Prior history of breast cancer. TECHNIQUE CT head performed skull base through vertex without intravenous contrast. This CT exam was performed with one or more of the following radiation dose reduction techniques: automatic exposure control, adjustment of mA and/or kV according to patient size, and iterative reconstruction. COMPARISON STUDIES Comparison 07/29/2016 FINDINGS The study is degraded by streak/motion artifact despite repetition of images. Brainstem unremarkable. Cerebellum and cerebral hemispheres show overall preservation of taylor matter-white matter differentiation. No evidence of acute cortical hemorrhage. Subtle linear focus of hyperdensity measuring 3-4 mm in length deep in a right posterior frontal lobe gyrus. Not present on a comparison study dated 01/27/2016 and not evident on study dated 07/29/2016. Where best visualized, this finding is not an area of motion artifact. It is concerning for a small focus of subarachnoid or gyriform petechial hemorrhage. Short-interval followup recommended. No mass effect or surrounding edema. No other areas suggestive of acute hemorrhage. The midline structures are nondisplaced. The basal ganglia are intact. There are mild periventricular probable sequelae of chronic microvascular ischemia. Ventricles, cisterns and sulci show mild generalized enlargement consistent with mild generalized STS. [facility] A Service of [facility] & [facility] RADIOLOGY TEXT RESULTS PATIENT: GORGE COOK LOCATION: [facility] : 50 UNIT #: [id number] AGE: [address]: Fabian Bruce MD SEX: F ORDER DR: atrophy. No intra or extraaxial mass effect or abnormal intracranial fluid collection. Intraorbital soft tissues are unremarkable. There are cavernous carotid arterial calcifications. The bony structures show no acute abnormality. The visualized paranasal sinuses and mastoid air cells are clear. No clearly acute extracranial soft tissue abnormality. IMPRESSION 1. Findings discussed Dr. Bruce at time of this dictation. There is a small 3-4 mm linear hyperdense focus deep in a sulcus of the posterior right frontal lobe (series 6 image 29/30). This is new compared to studies from January 2016 and July 2016 and given patient's stated mechanism of injury is concerning for a tiny focus of subarachnoid hemorrhage or petechial gyriform hemorrhage. Short-interval followup recommended. No mass effect. No surrounding edema. No other areas of intracranial hemorrhage suggested. 2. Periventricular and deep white matter tract probable sequelae of chronic microvascular ischemia. 3. Mild atrophy. 4. Vascular calcifications. 5. No fracture. Dictated by... Alfred Giron M.D. THIS IS AN ELECTRONICALLY VERIFIED REPORT Alfred Giron M.D. at 08/04/2016 7:48 PM Jose TD: 08/04/2016 16:43 JOB #: [id number] MEDICAL IMAGING REPORT Page 1 of 1 COPY
--- NOTE | ~2016-08-04 | CR58 ---
[facility] A Service of [facility] & [facility] RADIOLOGY TEXT RESULTS PATIENT: GORGE COOK LOCATION: [facility] : 50 UNIT #: [id number] AGE: [address]: Fabian Bruce MD SEX: F ORDER DR: [id number] [facility] [address] [place], [place] [address] [id number] E MR#: [id number] Acc #: [id number] NAME: GORGE COOK. : 1950 SEX: F STUDY DATE/TIME: 08/04/2016 17:04 UNIT: [facility] ROOM: STUDY DESCRIPTION: CR Cervical Spine 2 or 3 Views Attending Physician: Omkar Bruce M.D. Ordering Physician: Mundo Malik M.D. Primary Care Physician: Tila Hair M.D. MEDICAL IMAGING REPORT This report is preliminary unless electronic signature is present EXAM Cervical series 08/04/2016 INDICATION 66-year-old female with pain in the neck after a fall yesterday. TECHNIQUE 4 views of the cervical spine. Correlation is made with CT 12/24/2015 FINDINGS Dens and lateral masses are intact. There is advanced degenerative disc disease throughout the cervical spine. There is spurring most conspicuous at C3 and C4 there is reversal of the expected cervical curve. There is mild retrograde listhesis of C5 on C6 grade 1 in degree. Cervicothoracic junction not adequately visualized for radiographic clearance. C2-C7 appear intact. IMPRESSION 1. Cervicothoracic junction not identified for radiographic clearance. There is no acute fracture from C2-C7. Degenerative changes and retrograde listhesis of C5 on C6 as described. 2. Incidental atherosclerotic carotid calcifications present. A risk factor for stroke. Dictated by... Anderson Winslow M.D. THIS IS AN ELECTRONICALLY VERIFIED REPORT Anderson Winslow M.D. at 08/04/2016 10:29 PM MARK/magaly TD: 08/04/2016 22:09 JOB #: [id number] [facility] A Service of [facility] & [facility] RADIOLOGY TEXT RESULTS PATIENT: GORGE COOK LOCATION: [facility] #: [id number] : [birth year] UNIT #: [id number] AGE: [address]: Fabian Bruce MD SEX: F ORDER DR: MEDICAL IMAGING REPORT Page 1 of 1 COPY
--- NOTE | ~2016-08-04 | EKG ---
PATIENT: GORGE COOK UNIT #: [id number] Ventricular Rate: 61 BPM Atrial Rate: 61 BPM P-R Interval: 192 ms QRS Duration: 148 ms Q-T Interval: 454 ms QTC Calculation(Bezet): 457 ms P [employer]: 90 degrees Calculated R [employer]: -64 degrees Calculated T [employer]: 51 degrees Diagnosis Line: Normal sinus rhythm Diagnosis Line: Left axis deviation Diagnosis Line: Right bundle branch block Diagnosis Line: Abnormal ECG Diagnosis Line: When compared with ECG of 29-JUL-2016 11:35, Diagnosis Line: No significant change was found Diagnosis Line: Confirmed by HARMAN RYDER MD ([id number]) on Diagnosis Line: 08/05/2016 4:27:09 PM INTERPRETING MD: BRITNI BROWN
--- NOTE | ~2016-08-04 | CR151 ---
[facility] A Service of [facility] & [facility] RADIOLOGY TEXT RESULTS PATIENT: GORGE COOK LOCATION: [facility] : 50 UNIT #: [id number] AGE: [address]: Fabian Bruce MD SEX: F ORDER DR: [id number] [facility] [address] [place], [place] [address] [id number] E MR#: [id number] Acc #: [id number] NAME: GORGE COOK. : 1950 SEX: F STUDY DATE/TIME: 08/04/2016 12:51 UNIT: [facility] ROOM: STUDY DESCRIPTION: CR Hip Min 2 Views Rt Attending Physician: Omkar Bruce M.D. Ordering Physician: Ed Juventino Malik M.D. Primary Care Physician: Tila Hair M.D. MEDICAL IMAGING REPORT This report is preliminary unless electronic signature is present EXAM Right hip series 08/04/2016. HISTORY Trauma. Fell. Right hip pain. Weakness. TECHNIQUE AP radiograph of the pelvis is presented with frog-leg view right hip. FINDINGS Moderate to marked degenerative change in partially visualized lower lumbar spine. Bony ring of pelvis is intact. Sacroiliac joints, sacral arcuate lines intact. Mild narrowing bilateral hip joints. The visualized bilateral proximal femurs are intact. Periarticular soft tissues unremarkable. Visualized bowel gas pattern normal. Calcifications superimposed over the pelvis bilaterally most likely phleboliths. Dictated by... Alfred Giron M.D. THIS IS AN ELECTRONICALLY VERIFIED REPORT Alfred Giron M.D. at 08/04/2016 7:48 PM FRANCES/jake TD: 08/04/2016 16:20 JOB #: [id number] MEDICAL IMAGING REPORT Page 1 of 1 COPY
[~2016-08-04 11:48] MED LIST changes: +ADVAIR 250-501 EAC1 INH; +ALBUTEROL2.5 MG/3 M NEB; +ALENDRONATE SOD70 M1 PO; +AMIODARONE HCL200 MG PO; +ASPIRIN81 MG PO; +ATORVASTATIN CA40 MG PO; +COUMADIN7.5 MG PO; +CREON DR 12,001 EAC2 PO; +FERRO-TIME325 MG PO; +LETROZOLE2.5 MG PO; +TYL325 PO; +VIMPAT200 MG PO
[2016-08-04 14:26] LABS: URINE SOURCE CLEAN CATCH
[2016-08-04 14:41] LABS: URINE APPEARANCE CLOUDY; URINE BILIRUBIN NEG (NEG); URINE BLOOD TRACE (NEG); URINE COLOR YELLOW; URINE GLUCOSE NEG (NEG); URINE KETONE NEG (NEG); URINE LEUKOCYTE ESTERASE 2+ (NEG); URINE NITRATE NEG (NEG); URINE PROTEIN TRACE (NEG); URINE SPECIFIC GRAVITY 1.011 (1.003-1.035); URINE UROBILINOGEN 0.2 MG/DL (NEG)
[2016-08-04 14:41] LABS: BASOPHIL# 0.1 X10e3 (0-0.3); BASOPHIL% 0.7 % (0-2.5); EOSINOPHIL# 0.1 X10e3 (0-0.7); EOSINOPHIL% 0.6 % (0.0-7.0); HEMATOCRIT 34.6 % (35.0-45.0); HEMOGLOBIN 10.4 gm/dL (12.0-16.0); LYMPHOCYTE% 8.7 % (17.0-45.0); MEAN CELL VOLUME 83.9 FL (83-96); MEAN CORPUSCULAR HEMOGLOBIN 25.1 PG (28-34); MEAN PLATELET VOLUME 8.4 FL (6.5-11.5); MONOCYTE# 0.7 X10e3 (0-1.0); MONOCYTE% 6.1 % (3.0-12.0); NEUTROPHIL# 9.3 X10e3 (1.5-7.1); NEUTROPHIL% 83.9 % (40-75); PLATELET COUNT 205 X10e3 (140-420); RED BLOOD COUNT 4.12 X10e (3.90-5.30); WHITE BLOOD COUNT 11.1 X10e3 (4.0-10.5)
[2016-08-04 14:42] LABS: DIFF IND NO
[2016-08-04 14:44] LABS: CULTURE INDICATED? YES; URBCS1 AUWI 0-2 /[HPF] (0-2); URINE BACTERIA AUWI 4+ (NEGATIVE); URINE SQUAMOUS EPITHELIAL CELL OCC /[HPF]; UWBCS1 AUWI 25-50 (0-5)
[2016-08-04 14:53] LABS: PARTIAL THROMBOPLASTIN TIME 25.9 SECONDS (23.5-31.3); PROTHROMBIN TIME (PATIENT) 10.4 SECONDS (9.6-11.5)
[2016-08-04 15:05] LABS: BILIRUBIN, DIRECT 0.1 mg/dL (0.0-0.2); BILIRUBIN,INDIRECT 0.5 mg/dL (0.0-0.9); BILIRUBIN,TOTAL 0.6 mg/dL (0.2-2.0); BUN/CREATININE RATIO 15.55; CALCIUM SERUM 8.8 mg/dL (8.4-10.2); CREATININE SERUM 0.9 mg/dL (0.6-1.4); GLOM FILT RATE Estimated 66.7 mL/min (>60); PROTEIN TOTAL SERUM 7.3 g/dL (6.0-8.3)
[2016-08-04 15:36] LABS: %MB 2.2 % (0.0-4.0)
== END 2016-08-04 18:50 | disposition other institution (70) ==
LOC: CED 11:48
PROVIDERS: Emergency Medicine
DX: I62.9 Nontraumatic intracranial hemorrhage, unspecified (principal); J44.9 Chronic obstructive pulmonary disease, unspecified; F17.210 Nicotine dependence, cigarettes, uncomplicated; W18.30XA Fall on same level, unspecified, initial encounter
CPT/HCPCS: 70450; 72040; 73502; 80048; 80076; 81003; 82550; 82553; 82947; 84484; 85025; 85610; 85730; 87086; 87088; 87186; 93005; 99285

== ENCOUNTER → 2016-08-23 | Outpatient (CLI) | payer OTHER ==
--- NOTE | ~2016-08-23 | US24 ---
[facility] A Service of [facility] & [facility] RADIOLOGY TEXT RESULTS PATIENT: GORGE COOK LOCATION: [facility] : 50 UNIT #: [id number] AGE: [address]: TILA DELEON SEX: F ORDER DR: [id number] [facility] [address] [place], [place] [address] [id number] O MR#: [id number] Acc #: [id number] NAME: GORGE COOK. : 1950 SEX: F STUDY DATE/TIME: 08/23/2016 10:40 UNIT: [facility] ROOM: STUDY DESCRIPTION: US Breast Unilateral Attending Physician: Tila Deleon M.D. Referring Physician: Tila Deleon M.D. Primary Care Physician: Tila Deleon M.D. MEDICAL IMAGING REPORT This report is preliminary unless electronic signature is present EXAM Targeted ultrasound of the right breast 08/23/2016 FINDINGS Result text under the Diagnostic mammogram of the right breast same day examination. Please see that examination for full report. BIRADS: 3 Probably benign finding; short interval followup suggested. Dictated by... Anderson Winslow M.D. THIS IS AN ELECTRONICALLY VERIFIED REPORT Anderson Winslow M.D. at 08/23/2016 1:15 PM Hien TD: 08/23/2016 12:41 JOB #: [id number] MEDICAL IMAGING REPORT Page 1 of 1 COPY
--- NOTE | ~2016-08-23 | MY8 ---
[facility] A Service of [facility] & [facility] RADIOLOGY TEXT RESULTS PATIENT: GORGE COOK LOCATION: [facility] : 50 UNIT #: [id number] AGE: [address]: TILA DELEON SEX: F ORDER DR: [id number] [facility] [address] [place], [place] [address] [id number] O MR#: [id number] Acc #: [id number] NAME: GORGE COOK. : 1950 SEX: F STUDY DATE/TIME: 08/23/2016 10:07 UNIT: [facility] ROOM: STUDY DESCRIPTION: MY Mammogram Dx Dig Rt Attending Physician: Tila Deleon M.D. Referring Physician: Tila Deleon M.D. Primary Care Physician: Tila Deleon M.D. MEDICAL IMAGING REPORT This report is preliminary unless electronic signature is present REVISED REPORT SEE ADDENDUM EXAM Unilateral right digital diagnostic mammogram and targeted right breast ultrasound, 08/23/2016. INDICATION 66-year-old female with a history of breast cancer on the right status post lumpectomy in December of 2015. The patient reports approximately 1 month ago she fell on her right breast and experienced extensive bruising all over the right breast. She also suffered a subdural hematoma in connection with a fall on concrete. She now complains of a palpable nodule in the right breast. She reports it has been there for approximately 1 month. TECHNIQUE CC, MLO, and true lateral views of the right breast were obtained and reviewed with an FDA-approved CAD device. Following the mammographic evaluation of the right breast, targeted ultrasound was also performed. COMPARISON Mammogram studies 12/10/15 and 12/31/2015, FINDINGS MAMMOGRAPHIC FINDINGS: A marker overlies the area of palpable concern. There is architectural distortion in the right breast related to THE lumpectomy procedure in the interval. Probable hemostases clips are present in the right breast at the lumpectomy site. There is mild skin thickening which may relate to postoperative sequela or radiation therapy as the patient reports a history of chemotherapy and/or radiation therapy. [facility] A Service of [facility] & [facility] RADIOLOGY TEXT RESULTS PATIENT: GORGE COOK LOCATION: [facility] : 50 UNIT #: [id number] AGE: [address]: TILA DELEON SEX: F ORDER DR: Deep to the scar marker and the area of palpable concern, there is a partially obscured but oval and otherwise well marginated mass measuring up to about 3 cm. Visible margins are smooth. This corresponds to the site of the prior lumpectomy and the site of palpable concern by the patient. No suspicious calcifications. Targeted ultrasound was thereafter performed. ULTRASOUND FINDINGS Right breast: The patient is initially scanned independently by the technologist and then rescanned in my presence. Limited physical exam (with patient consent) was performed. Physical exam demonstrates a palpable nodule in the upper outer hemisphere right breast corresponding to the mammographic abnormality. On ultrasound, there is a mixed echogenicity mass measuring 2.5 x 2.8 x 1.8 cm. It demonstrates increased through transmission and no internal color-flow. Portions of the mass are purely cystic and other portions appears solid or complicated in nature with overall imaging features most characteristic of a hematoma with blood products in different stages of evolution. Given the provided history of the recent fall and the history of lumpectomy, it is unclear if this represents a hematoma related to the lumpectomy or the recent traumatic injury. Regardless, this represents a probably benign finding based on imaging and history. The patient was presented the option of 3-6 months followup or ultrasound-guided biopsy for more definitive assessment in lieu of imaging followup. The patient has decided upon imaging followup rather than biopsy at this time which appears reasonable based upon imaging features and history. The patient was counseled that if this nodule enlarged or appeared more suspicious on followup imaging that at that point it would need to be more definitively characterized with biopsy. The patient voiced understanding and agreement. She was also encouraged to return prior to scheduled followup if symptoms worsened and she voiced understanding and agreement. IMPRESSION 1. The diagnostic mammogram and targeted right breast ultrasound demonstrate a probably benign postoperative or posttraumatic hematoma/seroma in the operative bed on the right measuring up to about 3 cm mammographically. Based on imaging features and history and location, this is favored to be a probably benign finding. The patient has decided to pursue short-term followup rather than biopsy at this time which appears reasonable under the circumstances, as described above. If this appears more suspicious or enlarges on followup imaging with mammography and ultrasound in 3-6 months, then ultrasound-guided core biopsy would be recommended at that point for further assessment. Please see further details above. 2. Findings and recommendations have been discussed in detail with the patient. Patients over the age of 40 are entered into a reminder system with target due date for the next mammogram. A result letter will also be sent to the [facility] A Service of [facility] RADIOLOGY TEXT RESULTS PATIENT: GORGE COOK LOCATION: [facility] : 50 UNIT #: [id number] AGE: [address]: TILA DELEON SEX: F ORDER DR: patient. BIRADS: 3 Probably benign finding; short interval follow-up suggested. Dictated by... Anderson Winslow M.D. THIS IS AN ELECTRONICALLY VERIFIED REPORT Anderson Winslow M.D. at 08/23/2016 1:15 PM Danny TD: 08/23/2016 12:29 JOB #: [id number] ADDENDUM The patient should return for a repeat mammogram and ultrasound in 3-6 months to confirm expected stability of the probably benign postoperative or posttraumatic seroma/hematoma in the right breast. STAT * RESULT Dictated by... Anderson Winslow M.D. THIS IS AN ELECTRONICALLY VERIFIED REPORT Anderson Winslow M.D. at 08/24/2016 7:41 AM Marcelo TD: 08/23/2016 11:36 JOB #: [id number] CC: Sovera/invision Please Delete MEDICAL IMAGING REPORT Page 1 of 1 COPY
== END | disposition home or self-care (01) ==
LOC: CMAM 09:30
DX: N63 Unspecified lump in breast (principal)
CPT/HCPCS: 76641; G0202; G0206

== ENCOUNTER → 2016-08-28 | Outpatient (CLI) | payer OTHER ==
--- NOTE | ~2016-08-28 | MR17 ---
[facility] A Service of [facility] & [facility] RADIOLOGY TEXT RESULTS PATIENT: GORGE COOK LOCATION: [facility] : 50 UNIT #: [id number] AGE: [address]: TILA DELEON SEX: F ORDER DR: [id number] [facility] [address] [place], [place] [address] [id number] O MR#: [id number] Acc #: [id number] NAME: GORGE COOK. : 1950 SEX: F STUDY DATE/TIME: 08/28/2016 13:22 UNIT: [facility] ROOM: STUDY DESCRIPTION: MR Brain WWo Contrast Attending Physician: Tila Deleon M.D. Referring Physician: Tila Deleon M.D. Primary Care Physician: Tila Deleon M.D. MRI CENTER REPORT This report is preliminary unless electronic signature is present. EXAM Brain MRI with without contrast. HISTORY Patient fell 3 weeks ago. Concern for a subdural hematoma. Patient diagnosed with dementia approximately 6 months ago. TECHNIQUE Multiplanar imaging brain was performed with and without contrast. 5 mL of MultiHance was used because of diminished GFR. COMPARISON The study is compared to a previous MRI from 03/22/2016 FINDINGS On diffusion weighted imaging there is no evidence of abnormal restricted diffusion to suggest a recent infarct. The routine brain images show moderate atrophy and moderate chronic ischemic changes in the periventricular deep white matter bilaterally. This has not progressed significantly since the previous exam. There is no evidence of a mass lesion or hemorrhage. No mass lesions are seen. On gradient echo imaging, there is a subacute to chronic hemorrhage seen in the subarachnoid space over the right cerebral convexity in what is probably the central sulcus. This is new since the previous MRI of 03/22/2016. There is no appreciable mass effect. No acute hemorrhages are seen. Postcontrast imaging shows no abnormal enhancement. No subdural collections of blood are noted either acutely or chronically. Also noted are low-lying cerebellar tonsils, unchanged from previous examinations, consistent with mild Chiari-I malformation. Impression 1. Subacute to chronic subarachnoid hemorrhage right cerebral convexity, probably in the central sulcus. It is new since the previous MRI [facility] A Service of [facility] & [facility] RADIOLOGY TEXT RESULTS PATIENT: GORGE COOK [facility] UNIT #: [id number] AGE: [address]: TILA DELEON SEX: F ORDER DR: 03/22/2016. It is not visible even in retrospect on the recent head CT from 07/29/2016. There is no appreciable mass effect and there is no evidence of subdural blood. 2. Atrophy with chronic ischemic changes stable since the previous exam. 3. Mild Chiari-I malformation. Dictated by... Dioni Holloway M.D. THIS IS AN ELECTRONICALLY VERIFIED REPORT Dioni Holloway M.D. at 08/29/2016 4:10 PM RLF/radha TD: 08/29/2016 11:16 JOB #: [id number] MRI CENTER REPORT Page 1 of 1 COPY
[2016-08-29 07:25] LABS: POC - CREATININE 1.51 mg/dL (0.44-1.03)
== END | disposition home or self-care (01) ==
LOC: CMRI 12:29
PROVIDERS: Internal Medicine
DX: I67.83 Posterior reversible encephalopathy syndrome (principal); S06.6X0A Traumatic subarachnoid hemorrhage without loss of consciousness, initial encounter; G31.9 Degenerative disease of nervous system, unspecified; G93.5 Compression of brain
CPT/HCPCS: 70553; 82565; A9577

== ENCOUNTER 2016-09-10 09:07 | Emergency (ER) | payer OTHER ==
--- NOTE | ~2016-09-10 | CT52 ---
[facility] A Service of [facility] RADIOLOGY TEXT RESULTS PATIENT: GORGE COOK LOCATION: [facility] : 50 UNIT #: [id number] AGE: [address]: Don Cintron MD SEX: F ORDER DR: [id number] [facility] [address] [place], [place] [address] [id number] E MR#: [id number] Acc #: [id number] NAME: GORGE COOK. : 1950 SEX: F STUDY DATE/TIME: 09/10/2016 10:21 UNIT: [facility] ROOM: STUDY DESCRIPTION: CT Cervical Spine Wo Cont Attending Physician: Don Cintron M.D. Ordering Physician: Don Cintron M.D. Primary Care Physician: Tila Hair M.D. MEDICAL IMAGING REPORT This report is preliminary unless electronic signature is present EXAM CT scan of the cervical spine without contrast 09/10/2016 HISTORY Right side and posterior neck pain status post fall this morning. TECHNIQUE Spiral CT was performed through the cervical spine without intrathecal contrast administration as per clinician request. Sagittal and coronal reconstructions were then performed through the cervical spine. This CT exam was performed with one or more of the following radiation dose reduction techniques: Automatic exposure control, adjustment of mA and/or kV according to patient size, and iterative reconstruction. FINDINGS The examination is limited for determination of discogenic disease due to the lack of intrathecal contrast. Sagittal reconstructions demonstrate normal alignment of the cervical spine with no anterolisthesis or retrolisthesis. There is reversal of the normal diet curve about the C4-5 vertebral body. There is degenerative change with marked disc space narrowing from C3-4 through C6-7 with degenerative endplate changes including bone cyst formation and sclerosis as well as marginal osteophytes. There is degenerative change involving the articular facets. The bones are osteopenic. There is no evidence of cervical spine fracture. IMPRESSION Multilevel degenerative change in the cervical spine. No CT evidence of cervical spine fracture. Dictated by... Kevin Cartwright M.D. [facility] A Service of [facility] RADIOLOGY TEXT RESULTS PATIENT: GORGE COOK LOCATION: [facility] #: [id number] : 50 UNIT #: [id number] AGE: [address]: Don Cintron MD SEX: F ORDER DR: THIS IS AN ELECTRONICALLY VERIFIED REPORT Kevin Cartwright M.D. at 09/11/2016 8:06 AM DARON/leslie TD: 09/10/2016 10:57 JOB #: [id number] MEDICAL IMAGING REPORT Page 1 of 1 COPY
--- NOTE | ~2016-09-10 | CT71 ---
[facility] A Service of [facility] & [facility] RADIOLOGY TEXT RESULTS PATIENT: GORGE COOK LOCATION: [facility] : 50 UNIT #: [id number] AGE: [address]: Don Cintron MD SEX: F ORDER DR: [id number] [facility] [address] [place], [place] [address] [id number] E MR#: [id number] Acc #: [id number] NAME: GORGE COOK. : 1950 SEX: F STUDY DATE/TIME: 09/10/2016 10:19 UNIT: [facility] ROOM: STUDY DESCRIPTION: CT Head Wo Contrast Attending Physician: Don Cintron M.D. Ordering Physician: Don Cintron M.D. Primary Care Physician: Tila Hair M.D. MEDICAL IMAGING REPORT This report is preliminary unless electronic signature is present EXAM Head CT without contrast, 09/10/2016 HISTORY Fell this morning, hit right side of head and back of head, blurred vision and posterior neck pain. TECHNIQUE This CT exam was performed with one or more of the following radiation dose reduction techniques: automatic exposure control, adjustment of mA and/or kV according to patient size, and iterative reconstruction. FINDINGS Axial images of the brain obtained without contrast show generalized atrophy. There are chronic ischemic changes seen around the ventricles. There is no evidence of mass effect, hemorrhage, or edema and no midline shift is seen. No acute changes are noted. IMPRESSION Atrophy with chronic ischemic changes. No acute changes are seen. Dictated by... Kevin Cartwright M.D. THIS IS AN ELECTRONICALLY VERIFIED REPORT Kevin Cartwright M.D. at 09/11/2016 8:06 AM DARON/saloni TD: 09/10/2016 10:45 JOB #: [id number] MEDICAL IMAGING REPORT Page 1 of 1 COPY
--- NOTE | ~2016-09-10 | CR243 ---
[facility] A Service of [facility] & [facility] RADIOLOGY TEXT RESULTS PATIENT: GORGE COOK LOCATION: [facility] : 50 UNIT #: [id number] AGE: [address]: Don Cintron MD SEX: F ORDER DR: [id number] [facility] [address] [place], [place] [address] [id number] E MR#: [id number] Acc #: [id number] NAME: GORGE COOK. : 1950 SEX: F STUDY DATE/TIME: 09/10/2016 9:59 UNIT: [facility] ROOM: STUDY DESCRIPTION: CR Thoracic Spine 3 Views Attending Physician: Don Cintron M.D. Ordering Physician: Don Cintron M.D. Primary Care Physician: Tila Hair M.D. MEDICAL IMAGING REPORT This report is preliminary unless electronic signature is present EXAM Thoracic spine 3 views HISTORY Patient fell with back pain. History of breast cancer. FINDINGS Three views are submitted. The examination shows normal vertebral body height and disc spaces in the upper thoracic region. Alignment is normal. There is advanced degenerative disc disease in the lumbar spine with scoliosis. There are postoperative changes of prior sternotomy and valve replacement. CONCLUSION 1. Scoliosis with advanced secondary degenerative changes in the lumbar spine. 2. Postop changes of valve replacement. 3. No acute findings in the thoracic spine. Dictated by... Alfred Collado M.D. THIS IS AN ELECTRONICALLY VERIFIED REPORT Alfred Collado M.D. at 09/11/2016 8:39 AM Marylu TD: 09/10/2016 10:35 JOB #: [id number] MEDICAL IMAGING REPORT Page 1 of 1 COPY
[2016-09-10 10:10] LABS: BASOPHIL# 0.1 X10e3 (0-0.3); BASOPHIL% 1.7 % (0-2.5); EOSINOPHIL# 0.1 X10e3 (0-0.7); EOSINOPHIL% 3.6 % (0.0-7.0); HEMATOCRIT 38.6 % (35.0-45.0); HEMOGLOBIN 12.1 gm/dL (12.0-16.0); LYMPHOCYTE# 0.9 X10e3 (1.0-3.5); LYMPHOCYTE% 24.8 % (17.0-45.0); MEAN CELL VOLUME 89.1 FL (83-96); MEAN CORPUSCULAR HEMOGLOBIN 27.9 PG (28-34); MEAN CORPUSCULAR HGB CONC 31.3 g/dL (30-36); MEAN PLATELET VOLUME 8.5 FL (6.5-11.5); MONOCYTE# 0.3 X10e3 (0-1.0); NEUTROPHIL# 2.3 X10e3 (1.5-7.1); NEUTROPHIL% 61.9 % (40-75); PLATELET COUNT 128 X10e3 (140-420); RED BLOOD COUNT 4.34 X10e (3.90-5.30); RED CELL DISTRIBUTION WIDTH 19.8 % (11.0-15.5); WHITE BLOOD COUNT 3.6 X10e3 (4.0-10.5)
[2016-09-10 10:14] LABS: DIFF IND NO
[2016-09-10 10:23] LABS: BUN/CREATININE RATIO 15.45; CALCIUM SERUM 8.9 mg/dL (8.4-10.2); CREATININE SERUM 1.1 mg/dL (0.6-1.4); GLOM FILT RATE Estimated 52.3 mL/min (>60); POTASSIUM 3.9 mmol/L (3.5-5.1)
== END 2016-09-10 11:57 | disposition home or self-care (01) ==
LOC: CED 09:07
PROVIDERS: Emergency Medicine
DX: S09.90XA Unspecified injury of head, initial encounter (principal); M54.2 Cervicalgia; J44.9 Chronic obstructive pulmonary disease, unspecified; F17.200 Nicotine dependence, unspecified, uncomplicated; Z79.899 Other long term (current) drug therapy; Z88.1 Allergy status to other antibiotic agents; Z88.7 Allergy status to serum and vaccine; Z88.8 Allergy status to other drugs, medicaments and biological substances; W18.09XA Striking against other object with subsequent fall, initial encounter
CPT/HCPCS: 36415; 70450; 72072; 72125; 80048; 85025; 85610; 96374; 96375; 99284; J2270; J2405

== ENCOUNTER 2016-09-15 07:10 | Emergency (ER) | payer OTHER ==
--- NOTE | ~2016-09-15 | EKG ---
PATIENT: GORGE COOK UNIT #: [id number] Ventricular Rate: 80 BPM Atrial Rate: 80 BPM P-R Interval: 176 ms QRS Duration: 152 ms Q-T Interval: 432 ms QTC Calculation(Bezet): 498 ms P Whitehall: 86 degrees Calculated R [place]hall: -58 degrees Calculated T [place]: 64 degrees Diagnosis Line: Normal sinus rhythm Diagnosis Line: Left axis deviation Diagnosis Line: Right bundle branch block Diagnosis Line: Abnormal ECG Diagnosis Line: When compared with ECG of 04-AUG-2016 12:33, Diagnosis Line: No significant change was found Diagnosis Line: Confirmed by WILLIAM YOUNG MD ([id number]) on 09/20/2016 Diagnosis Line: 2:32:16 PM INTERPRETING MD: HANNAH BROWN
--- NOTE | ~2016-09-15 | CT71 ---
[facility] A Service of [facility] RADIOLOGY TEXT RESULTS PATIENT: GORGE COOK LOCATION: [facility] : 50 UNIT #: [id number] AGE: [address]: Jose Carmona MD SEX: F ORDER DR: [id number] [facility] [address] [place], [place] [address] [id number] E MR#: [id number] Acc #: [id number] NAME: GORGE COOK. : 1950 SEX: F STUDY DATE/TIME: 09/15/2016 9:20 UNIT: [facility] ROOM: STUDY DESCRIPTION: CT Head Wo Contrast Attending Physician: Jose Carmona M.D. Ordering Physician: Jose Carmona M.D. Primary Care Physician: Tila Hair M.D. MEDICAL IMAGING REPORT This report is preliminary unless electronic signature is present EXAM Head CT without HISTORY 66-year-old female with possible head injury from multiple falls with headaches for veq-yw-thsco days. History of hypertension, seizures, stroke, TIA. COMMENT Routine noncontrast head CT is reviewed. Comparison is from 06/05/2015. This CT exam was performed with one or more of the following radiation dose reduction techniques: automatic exposure control, adjustment of mA and/or kV according to patient size, and iterative reconstruction. There is no displaced calvarial fracture. The visualized paranasal sinuses and mastoid air cells are clear. Moderate vascular calcifications are seen at the base of the brain. There is no extraaxial fluid collection. There is no evidence for acute intracranial hemorrhage. Since the study of 06/05/2015. Areas of abnormal white matter low-attenuation in the posterior brain parenchyma have essentially resolved. Please correlate for any history of previously treated posterior reversible encephalopathy syndrome. Currently, there is mild white matter low-attenuation more diffusely which is nonspecific and probably due to small vessel disease. If there is clinical concern for acute CVA, followup imaging would be indicated preferably with an MRI. There is no intracranial mass effect. The basilar cisterns are patent. There is no hydrocephalus. IMPRESSION 1. Probable sequelae of small vessel disease. 2. No acute intracranial injury. 3. It is likely that the patient had a previous episode of posterior reversible encephalopathy syndrome 06/05/2015. Please see discussion [facility] A Service of [facility] RADIOLOGY TEXT RESULTS PATIENT: GORGE COOK LOCATION: [facility] : 50 UNIT #: [id number] AGE: [address]: Jose Carmona MD SEX: F ORDER DR: above and correlate with the clinical history. Dictated by... Martina Wilks M.D. THIS IS AN ELECTRONICALLY VERIFIED REPORT Martina Wilks M.D. at 09/15/2016 5:40 PM BHARATI/trish TD: 09/15/2016 16:08 JOB #: [id number] MEDICAL IMAGING REPORT Page 1 of 1 COPY
--- NOTE | ~2016-09-15 | CR72 ---
[facility] A Service of [facility] RADIOLOGY TEXT RESULTS PATIENT: GORGE COOK LOCATION: [facility] : 50 UNIT #: [id number] AGE: [address]: Jose Carmona MD SEX: F ORDER DR: [id number] [facility] [address] [place], [place] [address] [id number] E MR#: [id number] Acc #: [id number] NAME: GORGE COOK. : 1950 SEX: F STUDY DATE/TIME: 09/15/2016 11:57 UNIT: [facility] ROOM: STUDY DESCRIPTION: CR Chest Single View Portable Attending Physician: Jose Carmona M.D. Ordering Physician: Jose Carmona M.D. Primary Care Physician: Tila Hair M.D. MEDICAL IMAGING REPORT This report is preliminary unless electronic signature is present EXAM Portable chest HISTORY Chest pain after falling today. TECHNIQUE A single view of the chest was obtained and compared with 07/29/2016. FINDINGS Since the previous examination, the heart, lungs and mediastinum show no changes. The lungs are emphysematous with multiple calcified granulomas seen on the right. Vascular markings are normal. No changes are seen in the mediastinum. IMPRESSION No active disease. Chronic granulomatous infections on the right. Emphysema. No change since the previous exam. STAT * RESULT Dictated by... Dioni Holloway M.D. THIS IS AN ELECTRONICALLY VERIFIED REPORT Dioni Holloway M.D. at 09/15/2016 4:49 PM RLF/chava TD: 09/15/2016 12:32 JOB #: [id number] [facility] A Service of [facility] RADIOLOGY TEXT RESULTS PATIENT: GORGE COOK LOCATION: [facility] #: [id number] : 50 UNIT #: [id number] AGE: [address]: Jose Carmona MD SEX: F ORDER DR: MEDICAL IMAGING REPORT Page 1 of 1 COPY
--- NOTE | ~2016-09-15 | CR150 ---
[facility] A Service of [facility] & [facility] RADIOLOGY TEXT RESULTS PATIENT: GORGE COOK LOCATION: [facility] : 50 UNIT #: [id number] AGE: [address]: Jose Carmona MD SEX: F ORDER DR: [id number] [facility] [address] [place], [place] [address] [id number] E MR#: [id number] Acc #: [id number] NAME: GORGE COOK. : 1950 SEX: F STUDY DATE/TIME: 09/15/2016 8:43 UNIT: [facility] ROOM: STUDY DESCRIPTION: CR Hip Min 2 Views Lt Attending Physician: Jose Carmona M.D. Ordering Physician: Jose Carmona M.D. Primary Care Physician: Tila Hair M.D. MEDICAL IMAGING REPORT This report is preliminary unless electronic signature is present EXAM Left hip and pelvis 09/15 INDICATION Pain and decreased range of motion in the left hip after multiple falls over the last 1-2 days. FINDINGS AP pelvis was obtained in addition to a frog leg left hip. Comparison made to pelvis film from 08/04/2016. No fracture or malalignment is seen. The femoral heads remain normal without evidence of osteonecrosis. IMPRESSION Negative pelvis and left hip. Dictated by... Dioni Orourke Jr., M.D. THIS IS AN ELECTRONICALLY VERIFIED REPORT Dioni Orourke Jr., M.D. at 09/15/2016 5:27 PM Nolan TD: 09/15/2016 15:27 JOB #: [id number] MEDICAL IMAGING REPORT Page 1 of 1 COPY
[2016-09-15 09:09] LABS: POC - CKMB <1.0 ng/mL (0.0-7.9); POC - TROPONIN <0.05 ng/mL (<=0.05)
[2016-09-15 09:12] LABS: BASOPHIL% 0.1 % (0-2.5); EOSINOPHIL% 0.2 % (0.0-7.0); HEMATOCRIT 35.9 % (35.0-45.0); HEMOGLOBIN 11.1 gm/dL (12.0-16.0); LYMPHOCYTE# 0.2 X10e3 (1.0-3.5); LYMPHOCYTE% 2.1 % (17.0-45.0); MEAN CELL VOLUME 88.9 FL (83-96); MEAN CORPUSCULAR HEMOGLOBIN 27.6 PG (28-34); MEAN PLATELET VOLUME 9.6 FL (6.5-11.5); MONOCYTE# 0.5 X10e3 (0-1.0); MONOCYTE% 6.7 % (3.0-12.0); NEUTROPHIL# 6.6 X10e3 (1.5-7.1); NEUTROPHIL% 90.9 % (40-75); RED BLOOD COUNT 4.04 X10e (3.90-5.30); RED CELL DISTRIBUTION WIDTH 19.4 % (11.0-15.5); WHITE BLOOD COUNT 7.2 X10e3 (4.0-10.5)
[2016-09-15 09:16] LABS: INR 1.1; PARTIAL THROMBOPLASTIN TIME 35.3 SECONDS (23.5-31.3); PROTHROMBIN TIME (PATIENT) 11.4 SECONDS (10.0-11.7)
[2016-09-15 09:43] LABS: ALBUMIN SERUM 2.8 g/dL (3.5-5.0); BILIRUBIN, DIRECT 0.2 mg/dL (0.0-0.2); BILIRUBIN,INDIRECT 0.4 mg/dL (0.0-0.9); BILIRUBIN,TOTAL 0.6 mg/dL (0.2-2.0); BUN/CREATININE RATIO 20.71; CALCIUM SERUM 7.8 mg/dL (8.4-10.2); CREATININE SERUM 1.4 mg/dL (0.6-1.4); GLOM FILT RATE Estimated 39.1 mL/min (>60); PROTEIN TOTAL SERUM 5.3 g/dL (6.0-8.3)
[2016-09-15 09:44] LABS: POTASSIUM 2.9 mmol/L (3.5-5.1)
[2016-09-15 09:59] LABS: URINE SOURCE CLEAN CATCH
[2016-09-15 10:16] LABS: URINE APPEARANCE CLEAR; URINE BILIRUBIN NEG (NEG); URINE BLOOD 3+ (NEG); URINE COLOR YELLOW; URINE GLUCOSE NEG (NEG); URINE KETONE NEG (NEG); URINE LEUKOCYTE ESTERASE 1+ (NEG); URINE NITRATE NEG (NEG); URINE PH 6.5 (5-8); URINE PROTEIN 2+ (NEG); URINE SPECIFIC GRAVITY 1.016 (1.003-1.035)
[2016-09-15 10:18] LABS: CULTURE INDICATED? YES; URINE BACTERIA AUWI 1+ (NEGATIVE); URINE SQUAMOUS EPITHELIAL CELL FEW /[HPF]
[2016-09-15 10:31] LABS: DIFF IND YES; PLATELET COUNT 89 X10e3 (140-420)
[2016-09-15 10:34] LABS: URINE TRANSITIONAL EPI CELLS FEW /[HPF]
[2016-09-15 10:46] LABS: NUCLEATED RED BLOOD CELL 1 /100 (0); PLATELET ESTIMATE DECREASED (NORMAL)
[2016-09-15 10:47] LABS: ANISOCYTOSIS SL; BURR CELLS PRESENT
[2016-09-15 11:23] LABS: POC - CKMB <1.0 ng/mL (0.0-7.9); POC - TROPONIN <0.05 ng/mL (<=0.05)
== END 2016-09-15 13:30 | disposition home or self-care (01) ==
LOC: CED 07:10
PROVIDERS: Emergency Medicine
DX: E87.6 Hypokalemia (principal); M25.552 Pain in left hip; I50.9 Heart failure, unspecified; F17.200 Nicotine dependence, unspecified, uncomplicated; Z88.8 Allergy status to other drugs, medicaments and biological substances; Z88.1 Allergy status to other antibiotic agents
CPT/HCPCS: 36415; 70450; 71010; 73502; 80048; 80076; 81003; 82550; 82553; 83880; 84484; 85025; 85610; 85730; 87086; 87088; 87186; 93005; 94640; 99284

== ENCOUNTER 2016-11-19 21:52 | Emergency (ER) | payer OTHER ==
[~2016-11-19] VITALS: Ht 157.5 cm; Wt 47.6 kg
--- NOTE | ~2016-11-19 | CR72 ---
[facility] A Service of [facility] RADIOLOGY TEXT RESULTS PATIENT: GORGE COOK [id number] 50 UNIT #: [id number] AGE: [address]: Jose Carmona MD SEX: F ORDER DR: [id number] [facility] [address] [place], [place] [address] [id number] E MR#: [id number] Acc #: [id number] NAME: GORGE COOK. : 1950 SEX: F STUDY DATE/TIME: 11/19/2016 22:50 UNIT: [facility] ROOM: STUDY DESCRIPTION: CR Chest Single View Portable Attending Physician: Jose Carmona M.D. Ordering Physician: Jose Carmona M.D. Primary Care Physician: Tila Hair M.D. MEDICAL IMAGING REPORT This report is preliminary unless electronic signature is present EXAM Frontal chest, 11/19/2016 INDICATION 66-year-old female with shortness of air today. Breast cancer, COPD. TECHNIQUE Frontal chest compared with 09/15/2016 FINDINGS Postop changes median sternotomy are present. Cardiac silhouette is stable. Lungs are hyperinflated and demonstrate sequela of chronic advanced emphysematous change. There is old healed granulomatous disease. Probable chronic pleural reaction accounting for minimal blunting of the CP angles bilaterally. No pneumothorax. Mild probable eventration of the right hemidiaphragm, unchanged. IMPRESSION Advanced emphysematous changes and old healed granulomatous disease. No definite superimposed active disease. Findings are similar to the prior study. Dictated by... Anderson Winslow M.D. THIS IS AN ELECTRONICALLY VERIFIED REPORT Anderson Winslow M.D. at 11/20/2016 10:58 PM MARK/joshua TD: 11/20/2016 06:27 JOB #: [id number] [facility] A Service of [facility] RADIOLOGY TEXT RESULTS PATIENT: GORGE COOK LOCATION: [facility] #: [id number] : 50 UNIT #: [id number] AGE: [address]: Jose Carmona MD SEX: F ORDER DR: MEDICAL IMAGING REPORT Page 1 of 1 COPY
--- NOTE | ~2016-11-19 | CT52 ---
[facility] A Service of [facility] RADIOLOGY TEXT RESULTS PATIENT: GORGE COOK LOCATION: [facility] : 50 UNIT #: [id number] AGE: [address]: Jose Carmona MD SEX: F ORDER DR: [id number] [facility] [address] [place], [place] [address] [id number] E MR#: [id number] Acc #: [id number] NAME: GORGE COOK. : 1950 SEX: F STUDY DATE/TIME: 11/19/2016 22:40 UNIT: [facility] ROOM: STUDY DESCRIPTION: CT Cervical Spine Wo Cont Attending Physician: Jose Carmona M.D. Ordering Physician: Jose Carmona M.D. Primary Care Physician: Tila Hair M.D. MEDICAL IMAGING REPORT This report is preliminary unless electronic signature is present EXAM CT cervical spine without contrast INDICATION Headache, dizziness and neck pain after a fall yesterday. PROCEDURE Unenhanced CT of the cervical spine. This CT examination was performed with one or more of the following radiation dose reduction techniques: automatic exposure control, adjustment of mA and/or kV according to patient size, and iterative reconstruction. COMPARISON 09/10/2016. FINDINGS Multilevel degenerative disc disease. Cervical vertebral body height is preserved. There is stable reversal of the cervical lordosis. Alignment is stable. Craniocervical junction and the dens are intact. No acute fracture. Multilevel degenerative disc disease and facet change resulting in varying degrees of multilevel central canal or neural foraminal narrowing. IMPRESSION 1. No acute findings. 2. Multilevel degenerative change. No significant interval change compared with 09/10/2016. Dictated by... Omkar Diamond M.D. THIS IS AN ELECTRONICALLY VERIFIED REPORT [facility] A Service of [facility] RADIOLOGY TEXT RESULTS PATIENT: GORGE COOK LOCATION: [facility] : 50 UNIT #: [id number] AGE: [address]: Jose Carmona MD SEX: F ORDER DR: Omkar Diamond M.D. at 11/20/2016 10:02 PM RANDELL/chava TD: 11/20/2016 06:06 JOB #: [id number] MEDICAL IMAGING REPORT Page 1 of 1 COPY
--- NOTE | ~2016-11-19 | CT71 ---
[facility] A Service of [facility] RADIOLOGY TEXT RESULTS PATIENT: GORGE COOK LOCATION: [facility] : 50 UNIT #: [id number] AGE: [address]: Jose Carmona MD SEX: F ORDER DR: [id number] [facility] [address] [place], [place] [address] [id number] E MR#: [id number] [facility] #: [id number] NAME: GORGE COOK. : 1950 SEX: F STUDY DATE/TIME: 11/19/2016 22:40 UNIT: [facility] ROOM: STUDY DESCRIPTION: CT Head Wo Contrast Attending Physician: Jose Carmona M.D. Ordering Physician: Jose Carmona M.D. Primary Care Physician: Tila Hair M.D. MEDICAL IMAGING REPORT This report is preliminary unless electronic signature is present EXAM Head CT no contrast 11/19/2016 INDICATION Fell yesterday at home, headache and dizziness since the fall. Pain in the neck and back. Generalized neck pain. TECHNIQUE Noncontrast CT brain was performed and compared with 09/15/2016. This CT examination was performed with one or more of the following radiation dose reduction techniques: automatic exposure control, adjustment of mA and/or kV according to patient size, and iterative reconstruction. FINDINGS There is generalized atrophy. Sulci and ventricles otherwise unremarkable. No midline shift. No evidence of acute intracranial hemorrhage. There is no mass, mass effect or edema to suggest acute infarct and no extraaxial fluid collections are present. Globes are intact. Bones are intact. Sinuses are clear. Mild chronic ischemic changes in the periventricular white matter. IMPRESSION Atrophy and chronic ischemic changes. No clearly acute intracranial process. No significant change from 09/15/2016. Dictated by... Anderson Winslow M.D. THIS IS AN ELECTRONICALLY VERIFIED REPORT Anderson Winslow M.D. at 11/20/2016 10:49 PM LYNETTEY/chava [facility] A Service of [facility] RADIOLOGY TEXT RESULTS PATIENT: GORGE COOK LOCATION: [facility] #: [id number] : 50 UNIT #: [id number] AGE: [address]: Jose Carmona MD SEX: F ORDER DR: TD: 11/20/2016 06:09 JOB #: [id number] MEDICAL IMAGING REPORT Page 1 of 1 COPY
== END 2016-11-19 23:25 | disposition home or self-care (01) ==
LOC: CED 21:52
DX: S16.1XXA Strain of muscle, fascia and tendon at neck level, initial encounter (principal); Z88.1 Allergy status to other antibiotic agents; Z88.8 Allergy status to other drugs, medicaments and biological substances; W18.30XA Fall on same level, unspecified, initial encounter; Y92.009 Unspecified place in unspecified non-institutional (private) residence as the place of occurrence of the external cause
CPT/HCPCS: 70450; 71010; 72125; 99284